=== PATIENT | female | born 1995 | race Caucasian/White ===

== ENCOUNTER 2023-04-12 13:29 | Observation (INO) | payer OTHER ==
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
[2023-04-12 20:38] LABS: Basophils # (A) 0.1 k/uL (0-0.2); Basophils % (A) 0 %; Eosinophils # (A) 0.2 k/uL (0-0.7); Eosinophils % (A) 2 %; Lymphocytes # (A) 4.7 k/uL (1.0-4.8); Lymphocytes % (A) 33 %; MCH 33.4 pg (25.0-35.0); MCHC 33.4 g/dL (31.0-37.0); MCV 100.1 fL (80.0-100.0); Mean Platelet Volume 9.4; Monocytes # (A) 1.2 k/uL (0-1.0); Monocytes % (A) 9 %; Neutrophils # (A) 7.5 k/uL (1.3-7.7); Neutrophils % (A) 54 %; Platelet Count 256 k/uL (150-450)
[2023-04-12 20:48] LABS: ALT 81 U/L (4-34); AST 41 U/L (14-36); African American GFR (CKD) >90 (>60 ml/min/1.73 sqM); Albumin 4.8 g/dL (3.5-5.0); Alkaline Phosphatase 60 U/L (38-126); Anion Gap 15 mmol/L; Blood Urea Nitrogen 9 mg/dL (7-17); Calcium 9.4 mg/dL (8.4-10.2); Carbon Dioxide 21 mmol/L (22-30); Chloride 102 mmol/L (98-107); Glucose 106 mg/dL (74-99); Non-African American GFR(CKD) >90 (>60 ml/min/1.73 sqM); Potassium 3.8 mmol/L (3.5-5.1); Sodium 138 mmol/L (137-145); Total Bilirubin 1.1 mg/dL (0.2-1.3); Total Protein 7.9 g/dL (6.3-8.2)
[2023-04-12 21:05] LABS: HCG,Quantitative Serum <2.4 mIU/mL
[2023-04-12 21:13] LABS: Bacteria,Urine Rare /hpf; Mucus,Urine Few /hpf; RBC,Urine 3 /hpf (0-5); Squamous Epithelial Cell,Urine 11 /hpf (0-4); WBC,Urine 1 /hpf (0-5)
[2023-04-12 21:14] LABS: Appearance,Urine Slightly Cloudy (Clear); Color,Urine Yellow; Glucose,Urine (UA) Negative (Negative); PH, Urine 5.5 (5.0-8.0); Protein,Urine Negative (Negative); Specific Gravity,Urine 1.036 (1.001-1.035)
[2023-04-12 21:15] LABS: Bilirubin,Urine Negative (Negative); Blood,Urine Negative (Negative); Ketones,Urine Negative (Negative); Leukocyte Esterase,Urine Negative (Negative); Nitrite,Urine Negative (Negative); Urobilinogen,Urine <2.0 mg/dL (<2.0)
[2023-04-13 04:13] LABS: Amphetamine Screen,Urine Not Detected (NotDetected); Barbiturate Screen,Urine Not Detected (NotDetected); Benzodiazepines Screen,Urine Not Detected (NotDetected); Cocaine Screen,Urine Not Detected (NotDetected); Methadone Screen, Urine Not Detected (NotDetected); Opiate Screen,Urine Not Detected (NotDetected); Oxycodone Screen, Urine Not Detected (NotDetected); Phencyclidine Screen,Urine Not Detected (NotDetected); Tricyclic Antidepressant,Urine Not Detected (NotDetected); Urn Cannabinoid Scrn Detected (NotDetected)
[2023-04-13] MEDS ORDERED: LORazepam 1 MG TAB PO PRN (05:20)
[2023-04-13] MEDS ORDERED: HALOPERIDOL LACTATE 5 MG/ML 1 ML VIAL IM STA (07:03)
[2023-04-13] MEDS ORDERED: diphenhydrAMINE 50 MG/ML 1 ML VIAL IM STA (07:03)
[2023-04-13] MEDS ORDERED: LORazepam 2 MG/ML INJ IM STA (07:03)
--- NOTE | 2023-04-13 10:14 | CT ---
EXAMINATION TYPE: CT brain wo con DATE OF EXAM: 04/13/2023 COMPARISON: None HISTORY: 27-year-old female, confusion, mental status change after trauma TECHNIQUE: Examination was done in axial plane without intravenous contrast. Coronal and sagittal r econstructions performed. CT DLP: 1095.4 mGycm Automated exposure control for dose reduction was used. FINDINGS: There is no evidence of acute intracranial hemorrhage, acute ischemic changes, mass, mass-effect, or extra-axial fluid collection. There is no effacement of cerebral sulci or basal subarachnoid cister ns. There is no hydrocephalus. There is no midline shift. Chaney-white matter distinction is preserv ed. Rightward nasal septal deviation. Moderate mucosal thickening throughout the ethmoid air cells. Mild mucosal thickening maxillary sinuses. Orbits and globes appear intact. Mastoid air cells well pneumat ized. IMPRESSION: No acute intracranial abnormality seen. Moderate chronic ethmoid sinus disease.
[2023-04-14 08:51] VITALS: RESP 17
[2023-04-14] MEDS ORDERED: ACETAMINOPHEN TAB 325 MG TAB PO PRN (11:57)
--- NOTE | 2023-04-14 13:32 | P.HPIM ---
History of Present Illness H&P Date: 04/14/23 History of present illness; patient is a 27-year-old lady with no significant pa st medical history who presented to the ER for psychiatric evaluation. Patient was unable to give a meaningful history to the ER providers as a nursing staff. Patient was very tearful and Saying that she is scared to say anything wrong. Nursing staff talked to patient and family and they were concerned about patient going through psychiatric issue. Patient kept changing her while she is in the hospital and kept changing her Complaints. SHe denies any auditory or visual hallucinations. Denies any homicidal or suicidal thoughts. Initial lab work done in the ER showed WBC 14, hemoglobin 15, platelet count 256, sodium 138, potassium 3.8, BUN 9, creatinine 0.52, AST 41, ALt 81, UA negative for any infection Urine drug screen positive for marijuana COVID-[address] head done showed no acute intracranial process Patient admitted to internal medicine service REVIEW OF SYSTEMS: Review of systems cannot be obtained as patient starts crying and does not answer questions. PHYSICAL EXAMINATION: GENERAL: The patient is alert , restless HEENT: Pupils are round and equally reacting to light. EOMI. No scleral icterus. No conjunctival pallor. Normocephalic, atraumatic. No pharyngeal erythema. No thyromegaly. CARDIOVASCULAR: S1 and S2 present. No murmurs, rubs, or gallops. PULMONARY: Chest is clear to auscultation, no wheezing or crackles. ABDOMEN: Soft, nontender, nondistended, normoactive bowel sounds. No palpable organomegaly. MUSCULOSKELETAL: No joint swelling or deformity. EXTREMITIES: No cyanosis, clubbing, or pedal edema. NEUROLOGICAL: Gross neurological examination did not reveal any focal deficits. SKIN: No rashes. Assessment and plan Paranoid behavior Acute metabolic encephalopathy COVID-19 infection Monitor vital signs Monitor CBC Monitor CMP Continue COVID-19 isolation Patient does not meet criteria for treatment with steroids , remdesevir for COV ID-19 Continue symptomatic treatment Psychiatric evaluation Labs and medication were reviewed.. Continue same treatment. Continue with symptomatic treatment. Resume home medication. Monitor labs and vitals. DVT and GI prophylaxis. Further recommendations as per clinical course of the patient Dictation was produced using [employer] dictation software. please excuse any grammatical, word or spelling errors. Past Medical History Past Medical History: No Reported History History of Any Multi-Drug Resistant Organisms: None Reported Past Surgical History: Tonsillectomy Past Psychological History: No Psychological Hx Reported Additional Psychological History / Comment(s): pt denies any psychological history Smoking Status: Former smoker Past Alcohol Use History: None Reported Past Drug Use History: None Reported Additional Drug Use History / Comment(s): pt denies any alcohol or drug use. Medications and Allergies Home Medications Medication Instructions Recorded Confirmed Type No Known Home Medications 12/09/21 04/13/23 History Allergies Allergy/AdvReac Type Severity Reaction Status Date / Time No Known Allergies Allergy Verified 04/13/23 09:57 Physical Exam Vitals: Vital Signs Temp Pulse Pulse Resp BP BP Pulse Ox 04/14/23 07:15 98.4 F 89 17 124/76 95 04/14/23 02:00 98.1 F 65 16 97/60 98 04/13/23 21:01 97.9 F 91 16 113/83 97 04/13/23 13:00 78 16 114/78 98 04/13/23 12:27 98.1 F 95 18 114/78 98 Intake and Output 04/13/23 04/14/23 04/14/23 22:59 06:59 14:59 Other: # Voids 0 1 Weight 63.503 kg Results CBC & Chem 7: 04/12/23 20:01 04/12/23 20:01 Labs: Abnormal Lab Results - Last 24 Hours (Table) 04/13/23 Range/Units 15:23 SARS-CoV-2 (PCR) Detected A (Not Detectd)
[2023-04-14 15:16] VITALS: BP 112/75; PULSE 100; TEMP 98.3
--- NOTE | 2023-04-15 10:05 | P.DS ---
Providers Date of admission: 04/13/23 18:51 Expected date of discharge: 04/14/23 Attending physician: Boom Pollard Consults: 04/13/23 18:46 Consult Physician Stat Consulting Provider: Khris Joseph Reason/Comments: mental health Do you want consulting provider notified?: Already Contacted Primary care physician: Physician Nonstaff Hospital Course: Discharge diagnoses; Paranoid behavior Acute metabolic encephalopathy COVID-19 infection Hospital course; patient is a 27-year-old lady with no significant past medical history who presented to the ER for psychiatric evaluation. Patient was unable to give a meaningful history to the ER providers as a nursing staff. Patient was very tearful and Saying that she is scared to say anything wrong. Nursing staff talked to patient and family and they were concerned about patient going through psychiatric issue. Patient kept changing her while she is in the hospital and kept changing her Complaints. SHe denies any auditory or visual hallucinations. Denies any homicidal or suicidal thoughts. Initial lab work done in the ER showed WBC 14, hemoglobin 15, platelet count 256, sodium 138, potassium 3.8, BUN 9, creatinine 0.52, AST 41, ALt 81, UA negative for any infection Urine drug screen positive for marijuana COVID-[address] head done showed no acute intracranial process Patient admitted to internal medicine service Psychiatry evaluated the patient, discussed with patient and with patient's family. Psychiatric recommended outpatient follow-up and community resources. Psych Cleared the patient for discharge PHYSICAL EXAMINATION: GENERAL: The patient is alert and oriented x3, not in any acute distress. Well developed, well nourished. HEENT: Pupils are round and equally reacting to light. EOMI. No scleral icterus. No conjunctival pallor. Normocephalic, atraumatic. No pharyngeal erythema. No thyromegaly. CARDIOVASCULAR: S1 and S2 present. No murmurs, rubs, or gallops. PULMONARY: Chest is clear to auscultation, no wheezing or crackles. ABDOMEN: Soft, nontender, nondistended, normoactive bowel sounds. No palpable organomegaly. MUSCULOSKELETAL: No joint swelling or deformity. EXTREMITIES: No cyanosis, clubbing, or pedal edema. NEUROLOGICAL: Gross neurological examination did not reveal any focal deficits. SKIN: No rashes. Dictation was produced using [employer] software. please excuse any grammatical, word or spelling errors. Patient Condition at Discharge: Good Plan - Discharge Summary New Discharge Prescriptions: New Acetaminophen Tab [Tylenol Tab] 500 mg PO Q6H PRN #20 tablet PRN Reason: Pain Discharge Medication List Acetaminophen Tab [Tylenol Tab] 500 mg PO Q6H PRN #20 tablet 04/14/23 [Rx] Follow up Appointment(s)/Referral(s): Nonstaff,Physician [Primary Care Provider] - 1-2 days Activity/Diet/Wound Care/Special Instructions: Patient follow-up with [facility] outpatient Follow-up primary care provider on discharge Continue vitamin C and zinc supplements along with fluids and rest Wear a mask and frequent handwashing Monitor for any fevers and use Tylenol as needed for fever or pain Discharge/Stand Alone Forms: Community Resources Discharge Disposition: HOME SELF-CARE
--- NOTE | 2023-04-16 19:31 | P.CN ---
Psychiatric Consult - . Consult date: 04/14/23 Consult:: IDENTIFYING DATA: This patient is a 27 year old single female with history of anxiety and cannabis abuse. REASON FOR REFERRAL: Psychiatry was consulted for "mental health" HISTORY OF PRESENT ILLNESS: Per chart, the patient presented to the hospital for psychiatric evaluation. "Patient was unable to give a meaningful history to the ER providers as a nursing staff. Patient was very tearful and Saying that she is scared to say anything wrong. Nursing staff talked to patient and family and they were concerned about patient going through psychiatric issue. Patient kept changing her while she is in the hospital and kept changing her Complaints. She denies any auditory or visual hallucinations. Denies any homicidal or suicidal thoughts." She was found to test positive for COVID-19 and so she was admitted to the medical unit. Her UDS was also positive for THC. I evaluated patient on 04/14/23. She was found sitting up in bed talking to her mother on the phone, with sitter at bedside to maintain safety. Patient appears anxious and required reassurance. She is intermittently tearful because she states she is scared she will wind up in a psychiatric hospital. When reassured this is only a psychiatric assessment, she relaxed and was able to participate in the assessment. She states she has had several life changes over the past several months. She was living with an ex-boyfriend in an apartment in [place], but they broke up and she moved in with a friend for the past month. She is now staying with her mother for the holidays and is considering moving to [place] to stay with her mother permanently. She denies any safety concerns and denies history of domestic violence. She reports anxiety over being unsure of her future and if she has made the right choices in life. She denies depressed mood or anhedonia. She denies any suicidal or homicidal ideation, intent or plan. Patient denies any auditory, visual hallucinations and denies any paranoia or delusions. Patients admits to using cannabis (about one joing about once a week) and she understands this is not good for her and plans to stop. She smoked 1/4 ppd of cigarettes. She denies alcohol or other illicit drug use. She declines medications and prefers to go to therapy. She called her mother and we talked to her mother together. Mother denies any safety concerns and agrees patient can be discharged home to her house. Mother confirms patient has had several life changes recently that have caused her stress. PAST PSYCHIATRIC HISTORY: Patient has a a history of anxiety. Patient denies being on any psychiatric medications. Patient denies any previous psychiatric hospitalizations. Patient denies any psychiatric outpatient follow-up. Patient denies any history of suicide attempts in the past. PAST MEDICAL HISTORY: denies ALLERGIES: as per EMR. CHEMICAL DEPENDENCY HISTORY: as per HPI. FAMILY PSYCHIATRIC/SUBSTANCE USE HISTORY: denies SOCIAL HISTORY: Patient was born and raised in [place]. Was living in [place], [place] with an ex-boyfriend, then moved in with a friend, and is currently staying with her mother in [place]; considering moving in with mother permanently. Works at [employer]. Has an associates degree in criminal justice and would like to work towards another degree and have a career. She denies a history of trauma or abuse. She reports she had a good childhood. Mother, step-dad and sister are supportive. MENTAL STATUS EXAM: General Appearance: Patient appears to be stated age.. Patient appears to have fair hygiene and grooming wearing hospital gown with fair eye contact. Behavior: Patient is calmly lying in bed without any agitated behavior, tearful at times due to stress and anxiety. Speech: Patient's speech is fluent and non-pressured. Mood/Affect: Patient reports their mood is "anxious", affect is congruent Suicidality/Homicidality: Patient denies having any suicidal or homicidal ideation intent or plan. Perceptions: Patient denies any visual hallucinations and denies any auditory hallucinations. Though content/process: There is no evidence of any delusional thought content and thought process is linear and goal-directed. Memory and concentration: AOX3, grossly intact for the purposes of this session. Can spell "WORLD" backwards Judgment and insight: fair IMPRESSIONS: Adjustment disorder with anxiety and disturbance of mood Cannabis use disorder, mild Tobacco use disorder, mild R/O cannabis -induced mood disorder PLAN: -At this time patient DOES NOT meet criteria for inpatient psychiatric admission. -Medications: No psychotropic medication changes today. Patient declines psychotropic medications and would like to start psychotherapy for her anxiety as an outpatient. -Can discontinue 1:1 sitter at this time as patient is not currently an imminent threat to herself. Continue to reevaluate safety and reinstate sitter if safety concerns arise. -lay out worker to provide patient with outpatient mental health/psychiatry resources for appropriate follow up upon discharge -[employer] spoke with patient about substance abuse and the harmful effects on medical and mental health, patient verbally understood and agreed. -Communicated plan to patient's nurse -Psychiatry will sign off at this time -Please contact with any questions.
[2023-04-17 14:08] LABS: N. gonorrhoeae,PCR Negative (Negative)
[2023-04-17 14:25] LABS: C. trachomatis,PCR Negative (Negative)
== END 2023-04-14 19:39 | disposition home or self-care (01) ==
LOC: EC 13:29 → 6NMEDSUR 04-13 18:51
PROVIDERS: ADMIT Hospitalist; ATTEND Hospitalist
DX: F43.22 Adjustment disorder with anxiety (principal); G93.41 Metabolic encephalopathy; U07.1 COVID-19; F22 Delusional disorders; F12.90 Cannabis use, unspecified, uncomplicated; F17.210 Nicotine dependence, cigarettes, uncomplicated; R74.01 Elevation of levels of liver transaminase levels; Z78.1 Physical restraint status; Z98.890 Other specified postprocedural states
CPT/HCPCS: 96372; 99285; 36415; 93005; 80053; 85025; 81001; 81025; 84702; 87491; 87591; 80306; 87635; 70450; G0378 ×2; J2060; J1200; J1630